=== PATIENT | male | born 1960 | race Caucasian/White ===

== ENCOUNTER 2022-09-05 14:14 | Emergency (ER) | payer OTHER ==
[2022-09-05 14:33] VITALS: BMI 32.8
[2022-09-05 17:46] LABS: BASO % 0.3 % (0-2.0); EOS % 0.6 % (0-4.5); HEMATOCRIT 42.2 % (35.4-49); HEMOGLOBIN 14.2 GM/dL (11.7-16.9); LYMPH % 28.4 % (8-40); MCH 29.5 pg (25.7-33.7); MCHC 33.6 g/dl (32.0-35.9); MEAN CELL VOLUME 87.9 fl (80-96); MEAN PLT VOLUME 8.1 fl (7.5-11.1); NEUT % 63.7 % (42.8-82.8); PLATELET COUNT 224 10^3/uL (134-434); RBC 4.81 M/mm3 (4.00-5.60); WHITE BLOOD COUNT 8.6 K/mm3 (4.0-10.0)
[2022-09-05 18:16] LABS: CALCIUM 9.3 mg/dL (8.5-10.1)
[2022-09-05 18:17] LABS: ALBUMIN 4.3 g/dl (3.4-5.0); BLOOD UREA NITROGEN 10.1 mg/dL (7-18)
[2022-09-05 18:20] LABS: CREATININE 1.1 mg/dL (0.55-1.3)
[2022-09-05 18:21] LABS: BILIRUBIN,TOTAL 0.4 mg/dL (0.2-1); TOT PROT 7.5 g/dl (6.4-8.2)
[2022-09-05 20:49] VITALS: BP 117/77; PULSE 87; RESP 18; TEMP 98.5
[2022-09-05] MEDS ORDERED: ACETAMINOPHEN 1000 MG/100 ML BAG IVPB ONE (20:56)
[2022-09-05] MEDS ORDERED: ACETAMINOPHEN INJECTION 100 ML IVPB ONE (21:14)
== END 2022-09-05 21:42 | disposition home or self-care (01) ==
LOC: JER 14:14
PROC: 3E033GC Introduction of Other Therapeutic Substance into Peripheral Vein, Percutaneous Approach (ICD-10-PCS; principal; 2022-09-05)
DX: R10.31 Right lower quadrant pain (principal)
CPT/HCPCS: 36415; 74177-TC; 80053; 85025; 99285-25; Q9967

== ENCOUNTER 2023-10-09 13:55 | Emergency (ER) | payer OTHER ==
[2023-10-09 14:02] VITALS: BP 146/79; PULSE 92; RESP 18; TEMP 98.6; BMI 32.8
[2023-10-09 15:27] LABS: BASO % 0.3 % (0-2.0); EOS % 1.3 % (0-4.5); HEMATOCRIT 43.4 % (35.4-49); HEMOGLOBIN 14.4 GM/dL (11.7-16.9); LYMPH % 31.4 % (8-40); MCH 29.4 pg (25.7-33.7); MCHC 33.3 g/dl (32.0-35.9); MEAN CELL VOLUME 88.4 fl (80-96); MEAN PLT VOLUME 7.7 fl (7.5-11.1); MONO % 7.8 % (3.8-10.2); NEUT % 59.2 % (42.8-82.8); PLATELET COUNT 209 10^3/uL (134-434); RBC 4.91 M/mm3 (4.00-5.60); WHITE BLOOD COUNT 7.5 K/mm3 (4.0-10.0)
[2023-10-09 15:34] LABS: INR 0.97 (0.83-1.09); PROTHROMBIN TIME (PATIENT) 11.2 SEC (9.7-13.0)
[2023-10-09 15:36] LABS: ACTIVATED PTT 34.3 SECONDS (25.2-36.5)
[2023-10-09 15:53] LABS: POTASSIUM 4.2 mmol/L (3.5-5.1)
[2023-10-09 15:54] LABS: CALCIUM 9.2 mg/dL (8.5-10.1)
[2023-10-09 15:55] LABS: BLOOD UREA NITROGEN 8.7 mg/dL (7-18)
[2023-10-09 15:58] LABS: CREATININE 1.2 mg/dL (0.55-1.3)
[2023-10-09 16:00] LABS: BILIRUBIN,TOTAL 0.2 mg/dL (0.2-1); TOT PROT 7.2 g/dl (6.4-8.2)
[2023-10-09 16:04] LABS: N-TERMINAL BNP 22.8 pg/ml (5-125)
== END 2023-10-09 16:42 | disposition home or self-care (01) ==
LOC: JER 13:55
DX: J40 Bronchitis, not specified as acute or chronic (principal); R06.02 Shortness of breath; R05.9 Cough, unspecified; Z20.822 Contact with and (suspected) exposure to COVID-19
CPT/HCPCS: 0241U-QW; 36415; 71045-TC-FY; 80053; 83880; 84484; 85025; 85610; 85730; 93005; 93010; 99285-25